=== PATIENT | female | born 1990 | race Caucasian/White ===

== ENCOUNTER 2021-06-22 19:54 | Emergency (ER) | payer OTHER ==
[~2021-06-22] VITALS: Ht 170.2 cm; Wt 49.9 kg
[2021-06-22] MEDS ORDERED: IV NS 0.9% 1,000 ML BAG IV ONE ×2 (20:30→21:30)
[2021-06-22 20:37] LABS: BASOPHILS % (AUTO) 0.1 % (0.0-2.0); EOSINOPHILS % (AUTO) 0.1 % (0.0-6.0); HEMATOCRIT 31 % (33-45); HEMOGLOBIN 9.9 g/dL (11.5-14.8); LYMPHOCYTES # (AUTO) 0.7 K/uL (0.8-4.8); LYMPHOCYTES % (AUTO) 5.7 % (20.0-44.0); MEAN CORPUSCULAR HGB CONC 32 g/dl (31.0-36.0); MEAN CORPUSCULAR VOLUME 88 fL (82-100); MONOCYTES # (AUTO) 0.7 K/uL (0.1-1.30); MONOCYTES % (AUTO) 5.5 % (2.0-12.0); NEUTROPHILS # (AUTO) 11.3 K/uL (1.8-8.9); NEUTROPHILS % (AUTO) 88.6 % (43.0-81.0); PLATELET COUNT (AUTO) 229 K/uL (150-450); RED BLOOD CELL COUNT(AUTO) 3.49 MIL/uL (4.0-5.2); WHITE BLOOD COUNT (AUTO) 12.8 K/uL (4.3-11.0)
--- NOTE | 2021-06-22 20:38 | NUR ---
blood and urine sent to lab
[2021-06-22 20:44] LABS: BILIRUBIN,URINE Negative (NEGATIVE); COLOR,URINE YELLOW (YELLOW); LEUKOCYTE ESTERASE ,URINE Trace (NEGATIVE); NITRITE, URINE Positive (NEGATIVE); PROTEIN,URINE Negative (NEGATIVE); UGLUCOSE 500 MG/DL mg/dL (NEGATIVE); UROBILINOGEN,URINE 0.2 EU/dL (0.2)
[2021-06-22 20:45] LABS: BACTERIA,URINE 2+ /HPF (None Seen); RBC,URINE NONE SEEN /HPF (0-2); SQUAMOUS EPITHELIAL CELL,UR Few /HPF (None Seen)
[2021-06-22 20:49] LABS: CHLORIDE 103 mmol/L (98-107); POTASSIUM 3.3 mmol/L (3.5-5.1); SODIUM SERUM 141 mmol/L (136-145)
[2021-06-22 20:50] LABS: CALCIUM, SERUM 7.6 mg/dL (8.5-10.1); CARBON DIOXIDE 29 mmol/L (21-32); GLUCOSE 206 mg/dL (74-106); UREA NITROGEN, BLOOD 17 mg/dL (7-18)
[2021-06-22 21:04] LABS: ALKALINE PHOSPHATASE 54 U/L (46-116); ASPARTATE AMINOTRANSFERASE 70 U/L (15-37); BILIRUBIN,DIRECT 0.1 mg/dL (0.0-0.2); BILIRUBIN,TOTAL 0.3 mg/dL (0.2-1.0)
[2021-06-22 21:05] LABS: ALANINE AMINOTRANSFERASE 46 U/L (12-78); ALBUMIN 3.2 g/dL (3.4-5.0); TOTAL PROTEIN, SERUM 6.4 g/dL (6.4-8.2)
--- NOTE | 2021-06-22 21:05 | NUR ---
[facility] PAGED
[2021-06-22] MEDS ORDERED: CEFTRIAXONE 1GM BAG (ER ONLY) 50 ML IV ONE (21:14)
[2021-06-22] MEDS ORDERED: CEFTRIAXONE 1 G in IV D5W 50 ML IV ONE (21:30)
[2021-06-22] MEDS ORDERED: ONDANSETRON HCL/PF 4 MG/2 ML VIAL IVP PRN (21:30)
[2021-06-22] MEDS ORDERED: ACETAMINOPHEN 325 MG TABLET PO PRN (21:30)
[2021-06-22] MEDS ORDERED: INSULIN REGULAR, HUMAN 100 UNIT/ML 3 ML VIAL SQ PRN (21:30)
[2021-06-22] MEDS ORDERED: MORPHINE SULFATE INJ 2 MG/ML DISP.SYRIN IV PRN (21:30)
[2021-06-22] MEDS ORDERED: BLOOD SUGAR DIAGNOSTIC 1 EACH STRIP IN SCH (22:00)
--- NOTE | 2021-06-22 22:00 | NUR ---
CONTACTED INSURANCE TO TRANSFER PT TO [facility]. AWAITING CALL BACK AND FAXING CLINICALS NOW.
--- NOTE | 2021-06-22 22:06 | NUR ---
FAXED CLINICALS OVER TO [facility] ADMITTING.
--- NOTE | 2021-06-22 22:41 | NUR ---
FAXED CLINICALS TO [facility] ED AND FLOOR FAX#
--- NOTE | 2021-06-22 23:07 | NUR ---
EPIC WAS PAGED
--- NOTE | 2021-06-22 23:25 | NUR ---
called evening pharmacy to have meds verified
[2021-06-22] MEDS ORDERED: LORAZEPAM INJ 2 MG/ML VIAL IV PRN (23:30)
--- NOTE | 2021-06-22 23:34 | NUR ---
CARLA ([facility])
--- NOTE | 2021-06-22 23:42 | NUR ---
[facility] HOSPITALIST IS DR SCOTT. NUMBER TO CONTACT IS .
--- NOTE | 2021-06-22 23:45 | NUR ---
SECOND ATTEMPT MADE TO CONTACT [facility]ITAL[facility]. NO ANSWER.
--- NOTE | 2021-06-23 00:01 | NUR ---
POISON CONTROL FOLLOWED UP REGARDING STATUS OF PT.
--- NOTE | 2021-06-23 00:05 | NUR ---
CALLED [facility] FOR PANEL CALL.
--- NOTE | 2021-06-23 00:28 | NUR ---
SPOKE WITH ABBY FROM [facility]. [facility] AWARE OF PT AND SHE IS CALLING FOR A TELEMETRY BED NOW. AWAITING A CALL BACK.
--- NOTE | 2021-06-23 00:39 | NUR ---
CALLED DR. AMBE. DE ON PHONE WITH DR. SCOTT.
--- NOTE | 2021-06-23 00:59 | NUR ---
[facility]axed clinicals [facility] to [phone]
[2021-06-23] MEDS ORDERED: LEVETIRACETAM (500MG) 500 MG in IV NS 0.9% 100 ML IV SCH (01:00)
[2021-06-23] MEDS ORDERED: IOHEXOL-350 100 ML VIAL IV ONE (01:08)
[2021-06-23] MEDS ORDERED: IV NS 0.9% 250 ML IV ONE (01:08)
[2021-06-23 01:09] LABS: ACETAMINOPHEN < 2 ug/ml (10-30)
[2021-06-23] MEDS ORDERED: LEVETIRACETAM (500MG) 500 MG/5 ML VIAL IV ONE (01:09)
--- NOTE | 2021-06-23 01:15 | NUR ---
taken to radiology
--- NOTE | 2021-06-23 01:19 | NUR ---
f/u with night pharmacy
[2021-06-23] MEDS ORDERED: DEXAMETHASONE SOD PHOSPHATE 4 MG/ML VIAL IV SCH (01:22)
[2021-06-23] MEDS ORDERED: IV NS 0.9% 1,000 ML IV SCH (01:30)
[2021-06-23] MEDS ORDERED: LORAZEPAM INJ 2 MG/ML VIAL IV ONE (01:30)
[2021-06-23] MEDS ORDERED: DEXAMETHASONE SOD PHOSPHATE 4 MG/ML VIAL ONE (01:35)
[2021-06-23] MEDS ORDERED: LORAZEPAM INJ 2 MG/ML VIAL ONE (01:35)
[2021-06-23] MEDS ORDERED: DEXTROSE 50%-WATER 50 ML DISP.SYRIN ONE (01:54)
[2021-06-23] MEDS: DEXTROSE 50%-WATER 50 ML DISP.SYRIN IV PRN ×3 (02:03→03:58)
--- NOTE | 2021-06-23 02:03 | NUR ---
BS 58. ADMIN D50. PT DENIES S/SX OF HYPOGLYCEMIA. NO SHAKINESS, DIZZINESS, N/V. WILL REASSESS IN 30 MINUTES.
--- NOTE | 2021-06-23 02:21 | NUR ---
PER YEISON AT [facility], PT ACCEPTED TO ROOM [address] GOMEZ. NUMBER FOR REPORT IS . CALLING FOR TRANSPORT NOW.
--- NOTE | 2021-06-23 02:30 | NUR ---
ALS PICKUP IS AT 0400 VIA [facility] TO TRANSPORT TO [facility] ROOM 631.
[2021-06-23] MEDS ORDERED: CEFTRIAXONE 1 G in IV D5W 50 ML IV ONE (03:00)
--- NOTE | 2021-06-23 03:00 | NUR ---
REPORT GIVEN TO VITO HAMMONDSTERTL JOHNSON FOR [facility]
[2021-06-23] MEDS ORDERED: CEFTRIAXONE 1GM BAG (ER ONLY) 50 ML IV ONE (03:49)
--- NOTE | 2021-06-23 04:24 | NUR ---
REPORT GIVENT TO RM GALVAN TO TRANSFER PT TO [facility]. NOTIFIED CARLA ([place]). PT A/OX3. STABLE AT THIS TIME. DC WITH O2 3LPM VIA N/C; SATTING 100 %. ALL PAPERWORK AND PT BELONGINGS GIVEN TO RM GALVAN.
[2021-06-23 04:32] VITALS: BP 100/67
[2021-06-23] MEDS ORDERED: CEFTRIAXONE 1 G in IV D5W 50 ML IV SCH (22:00)
== END 2021-06-23 04:32 | disposition short-term general hospital (02) ==
LOC: ER 19:57
DX: A41.9 Sepsis, unspecified organism (principal); G93.40 Encephalopathy, unspecified; N39.0 Urinary tract infection, site not specified; C50.919 Malignant neoplasm of unspecified site of unspecified female breast; C79.32 Secondary malignant neoplasm of cerebral meninges; I21.4 Non-ST elevation (NSTEMI) myocardial infarction; E87.6 Hypokalemia; R00.0 Tachycardia, unspecified; R91.8 Other nonspecific abnormal finding of lung field; Z20.822 Contact with and (suspected) exposure to COVID-19; R73.9 Hyperglycemia, unspecified; D64.9 Anemia, unspecified; F15.10 Other stimulant abuse, uncomplicated
CPT/HCPCS: 36415; 70450; 71045; 71275; 74175; 80048; 80076; 80143; 80179; 80307; 81001; 82550; 82962 ×2; 83605 ×2; 84145; 84484 ×2; 84703; 85025; 85730; 87040 ×2; 87086; 87426; 93005; 96361; 96365; 96366; 96367; 96375; 99291; C9803; J0696 ×4; J1100; J1815; J1953; J2060; J7030 ×2; J7050; J7060 ×2; Q9967